=== PATIENT | male | born 1955 | race Caucasian/White ===

== ENCOUNTER 2020-06-06 08:33 | Outpatient (CLI) | payer MEDICARE, SELFPAY ==
--- NOTE | 2020-06-06 08:37 | CT_ITS ---
WS: [id number] CT ABDOMEN PELVIS TECHNIQUE: Contrast-enhanced CT of the abdomen and pelvis with coronal and sagittal reformatted image s. CLINICAL INFORMATION: PANCREATIC HEAD MASS DLP: 403.[address] scans at [facility] use at least one of these dose optimization techniques: automat ed exposure control; mA and/or kV adjustment per patient size (includes targeted exams where dose is matched to clinical indication); or iterative reconstruction. FINDINGS: Comparison ultrasound . No evidence of pancreatic mass. No evidence of pancreatic ductal dilatation. Normal pancreatic enhanc ement. No intrahepatic biliary ductal dilatation. Diffuse fatty infiltration liver. Normal portal vein and splenic vein. Normal gallbladder. Adrenal gl ands are normal. Normal renal parenchymal enhancement. Normal GE junction. Spleen is normal. Lung bas es are well aerated. Normal caliber abdominal aorta. No periaortic lymphadenopathy. Normal sigmoid colon. No evidence of s mall or large bowel obstruction. No pelvic or inguinal lymphadenopathy. Prostate calcification. Disc space narrowing worse at L2-3. CT/CT abdomen pelvis w con* [id number] IMPRESSION: 1. Pancreatic head is normal in appearance today. No evidence of pancreatic he ad mass. 2. Mild diffuse fatty infiltration liver. 3. No periaortic or pelvic lymphadenopathy. No inguinal lymphadenopathy. 4. No other significant findings.
[2020-06-06] MEDS: iohexol 300 mg/mL 50 mL Btl PO (08:40)
[2020-06-06 09:18] LABS: Blood Urea Nitrogen 18 mg/dL (8-23); Glomerular Filtration Rate 112.8 mL/min (90-130)
[2020-06-06] MEDS: iodixanol 320 mg/mL 100mL Btl IV (10:11)
== END 2020-06-06 08:34 | disposition home or self-care (01) ==
LOC: RAD 08:34
PROVIDERS: PCP Family Medicine; Visit Provider Family Medicine
DX: K86.89 Other specified diseases of pancreas (principal); K76.0 Fatty (change of) liver, not elsewhere classified
CPT/HCPCS: 36415; 74177; 82565; 84520

== ENCOUNTER 2022-04-09 16:26 | Emergency (ER) | payer MEDICARE, SELFPAY ==
[2022-04-09 16:31] VITALS: BP 72/46; PULSE 65; RESP 16; TEMP 36.4; O2SAT 97; BMI 22.4
[2022-04-09 17:06] VITALS: BP 74/57; PULSE 65; RESP 18; O2SAT 93
--- NOTE | 2022-04-09 17:16 | W.ED.WEAKNES ---
HPI - Weakness General: Chief complaint: Weakness Stated complaint: Low blood pressure not himself Time Seen by Provider: 04/09/22 17:08 Source: patient and family Mode of arrival: ambulatory Limitations: no limitations History of Present Illness: This patient presents to the emergency department because he not feeling well and feels rather globally weak. He states that he has been having some issues with elevation of blood pressure over the past couple of weeks with some mild headache and other nonspecific symptoms and went to a clinic this morning who noted that he had significantly elevated blood pressure and prescribed lisinopril 10 mg. He promptly got the prescription filled at home and took his first dose at approximately 11 AM today. Later this afternoon and early this evening he began to feel just out of sorts and weak and not very energetic. He had no chest pain or shortness of breath. Patient is never been treated for hypertension in the past. He states his family doctor is occasionally noted his blood pressure is borderline elevated but elected to watch it and not initiate any treatment. He readily admits he does not drink much in the way of fluids and is drank very little water today. He states he is urinated today and has had otherwise normal bodily functions today. MD Complaint: generalized weakness Context: new medication Associated symptoms: Denies chest pain, chills, confusion, dysuria, easy bruising, fever(s), nausea, syncope or vomiting Review of Systems Const: Denies: fever(s) or chills Eyes: Denies: change in vision ENMT: Denies: throat pain, odynophagia, nasal discharge or nasal congestion Card: Reports: lightheadedness; Denies: chest pain, palpitations, edema, swelling of feet/ankles or syncope Resp: Denies: dyspnea, productive cough or non-productive cough GI: Denies: abdominal pain, nausea or vomiting : Denies: flank pain, difficulty urinating or dysuria Musc: Denies: neck pain, back pain, extremity pain or extremity swelling Skin/Breast: Denies: rash Neuro: Denies: numbness in extremities, weakness in extremities, lack of coordination, vertigo, confusion, Slurred speech present or difficulty communicating thoughts Psych: Denies: anxiety or depression Endo: Denies: polyuria, polydipsia or tired all the time Brendon/Lymph: Denies: easy bruising or easy bleeding Physical Exam Narrative: EXAM NARRATIVE: Is alert makes good eye contact. Const: COMMON NORMALS: no acute distress and patient oriented x3 GENERAL APPEARANCE: cooperative and comfortable NUTRITIONAL APPEARANCE: thin HENMT: COMMON NORMALS: normocephalic, atraumatic, Normal nasal mucous membranes and turbinates present and moist oral mucous membranes HEAD & SCALP: normocephalic and atraumatic NOSE: Normal nasal mucous membranes and turbinates present Eye: COMMON NORMALS: Equal, round and reactive pupils present, EOMs intact bilaterally and conjunctivae normal CONJUNCTIVA: Yes conjunctivae normal PUPIL: Yes Equal, round and reactive pupils present Neck/C-Spine: COMMON NORMALS: full ROM, no lymphadenopathy, no JVD and No carotid bruits Chest: COMMONS NORMALS: normal inspection of the chest and normal palpation of entire chest wall Resp: COMMON NORMALS: normal respiratory effort, No retractions, No use of accessory muscles and clear to auscultation bilaterally AUSCULTATION: clear to auscultation bilaterally Cardio: COMMON NORMALS: no JVD, regular rate, regular rhythm and No murmurs present (Cardio) RATE: regular rate RHYTHM: regular rhythm GI: COMMON NORMALS: Normal to inspection, nondistended, normoactive bowel sounds present, Soft to palpation, non-tender, no masses and no bruits PALPATION: Yes Soft to palpation : COMMON NORMALS: Yes no CVA tenderness BLADDER/KIDNEY EXAM: Yes no CVA tenderness Back/Pelvis: COMMON NORMALS: no CVA tenderness, thoracic and lumbar spine normal to inspection and no thoracic nor lumbar tenderness Extremity: COMMON NORMALS: normal to inspection, full ROM, capillary refill normal, no calf tenderness and no pedal edema Neuro: COMMON NORMALS: patient oriented x3, moves all extremities, no focal motor deficits and no sensory deficits noted Psych: COMMON NORMALS: mental status grossly normal Skin: COMMON NORMALS: no rashes or lesions noted and no jaundice GENERAL SKIN EXAM: no rashes or lesions noted Course Reevaluation(s): Reevaluation #1: Patient is improved his blood pressure is improved he remains in a regular sinus rhythm borderline sinus bradycardia. Repeat examination reveals no new or focal findings. Engaged in a little more discussion with his spouse and she relates that over the past couple weeks she has had episodes where he will discount and stare off into space and will talk to her. She states that that is one of the reason she took him to the doctor this morning (this is now just being shared). She denies he suffers from any seizure activity etc. He denies any sensation of palpitations headache etc. His neurologic examination is nonfocal at this time and his mental status is normal however I would like to proceed with a noncontrast CT scan and she and he are agreeable to that. Time: 18:57 Reevaluation #2: His vital signs continue to improve. Now normotensive range with a systolic pressure of 120 diastolic pressure in the 70s. He is alert conversive without any focal findings. His noncontrast CT scan is reassuring. He apparently has a follow-up with his doctor on Tuesday. I think is reasonable to continue with that at that time determine if he needs to continue lisinopril or not. I advised him to hold the lisinopril over the weekend and monitor his blood pressure at home once or twice daily. Certainly it is unclear of what type of events his is describing. Whether there are partial seizures versus 10 transient hypotension or arrhythmia etc. its not clear but additional evaluation is likely indicated and I shared that with both he and his spouse. Currently at this time there is no evidence of an ongoing emergency medical condition require additional treatment or observation. With IV hydration his pressure has normalized. Time: 19:50 Vital Signs: Vital signs: Vital Signs Temperature 97.5 F L 04/09/22 16:31 Pulse Rate 57 L 04/09/22 18:34 Respiratory Rate 16 04/09/22 18:34 Blood Pressure 94/68 04/09/22 18:34 Pulse Oximetry 96 04/09/22 18:34 Oxygen Delivery Me thod 04/09/22 18:34 MDM - Weakness Medical Decision Making Patient brought to the emergency part by his spouse because of low blood pressure. She apparently has been having fluctuating blood pressure over the past several weeks and his took him to the clinic today for evaluation of his noted he was hypertensive and he was prescribed lisinopril. He apparently took his first dose (his central earlier today and subsequently had progressive significant lowering his blood pressure and somewhat generalized fatigue and weakness. Upon arrival he was noted to be significantly hypotensive but did respond to IV hydration and observation in the emergency department. Screening laboratories and clinical examination were reassuring. His later related that he was having some occasional episodes where it sounds almost as if he was in a fugue or absent state. A noncontrast CT was obtained which was reassuring without any evidence of acute changes. Clinical exam did not suggest anything worrisome at this time and they have follow-up arranged. His lisinopril was held until he has follow-up appointment at that time consideration may be given to additional work-up to possibly include carotid studies, echocardiogram, referral to neurology for EEG etc. Both patient and spouse expressed acknowledgment of discussion and recommendations and were appreciative of care. Lab Data I reviewed the patient's lab results. : 04/09/22 17:[address] 04/09/22 18:58 IMPRESSION: No acute intracranial abnormality. Mild left sphenoid sinusitis. Laboratory Results Sodium 143 mmol/L (136-145) 04/09/22 17:20 Potassium 3.7 mmol/L (3.5-5.1) 04/09/22 17:20 Chloride 106 mmol/L (98-107) 04/09/22 17:20 Carbon Dioxide 25 mmol/L (22-29) 04/09/22 17:20 Anion Gap 15.7 (5-19) 04/09/22 17:20 BUN 8 mg/dL (8-23) 04/09/22 17:20 Creatinine 1.1 mg/dL (0.7-1.2) 04/09/22 17:20 GFR Calculation 66.8 mL/min (90-130) L 04/09/22 17:20 Glucose 67 mg/dL (65-115) 04/09/22 17:20 Calculated Osmolality 293 mOsm/kg (285-295) 04/09/22 17:20 Calcium 8.4 mg/dL (8.5-10.5) L 04/09/22 17:20 EKG Data EKG 1: I personally reviewed and interpreted this EKG as follows: Interpretation: Resting EKG reveals sinus bradycardia 54 bpm. Normal intervals, normal axis. No acute ST-T wave changes noted at this time. Discharge Plan Discharge Patient Disposition: Home Clinical Impression: Hypotension, unspecified Condition: Stable Discharge Orders: Discharge ED (Routine); Ordered 04/09/22 Ordered By: Colt Corado Referrals: Clark Reeves MD [Primary Care Provider] - 04/13/22 (Scheduled follow-up. Was seen in the emergency department because of hypotension secondary to lisinopril prescribed earlier this day) Discharge Diet: Usual diet Discharge Activity: Increase activity as tolerated Patient Instructions: Opioid Safety Activity Restrictions/Additional Instructions: Do not take the lisinopril until you see your doctor. Take your blood pressure reading once or twice daily after you have been sitting for 10 to 15 minutes. If you have any recurrent symptoms or concerns prior to your doctor's appointment return to this emergency department for reevaluation. Make sure you are drinking at least 2 quarts of fluid daily. 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
[2022-04-09] MEDS: sodium chloride 0.9% 1,000 ML 999 ML IV (17:31)
[2022-04-09 18:04] LABS: Anion Gap 15.7 (5-19); Blood Urea Nitrogen 8 mg/dL (8-23); Calcium 8.4 mg/dL (8.5-10.5); Carbon Dioxide 25 mmol/L (22-29); Chloride 106 mmol/L (98-107); Glomerular Filtration Rate 66.8 mL/min (90-130); Glucose 67 mg/dL (65-115); Osmolality Calculated 293 mOsm/kg (285-295); Potassium 3.7 mmol/L (3.5-5.1); Sodium 143 mmol/L (136-145)
--- NOTE | 2022-04-09 18:14 | ECG_ITS ---
[facility] Test Date: 2022-04-09 Pat Name: Colt Gong Department: Room: Gender: Male [employer] Executive Producer: : 1955 Requested By: Colt Corado Order Number: [id number] Claudio MD: Rob Cohen M.D. Measurements Intervals [place] Rate: 54 P: 73 NE: 155 QRS: 88 QRSD: 90 T: 89 QT: 461 QTc: 437 Interpretive Statements SINUS BRADYCARDIA No previous ECG available for comparison Electronically Signed On 04-10-2022 9:27:59 CDT by Rob Cohen M.D. [id number]
[2022-04-09 18:34] VITALS: BP 94/68; PULSE 57; RESP 16; O2SAT 96
--- NOTE | 2022-04-09 18:58 | CTR_ITS ---
PROCEDURE INFORMATION: Exam: CT Head Without Contrast Exam date and time: 04/09/2022 7:13 PM Age: 66 years old Clinical indication: Syncope and collapse; Additional info: Episodes of unresponsive TECHNIQUE: Imaging protocol: Computed tomography of the head without contrast. Radiation optimization: All CT scans at this facility use at least one of these dose optimization techniques: automated exposure control; mA and/or kV adjustment per patient size (includes targeted exams where dose is matched to clinical indication); or iterative reconstruction. COMPARISON: No relevant prior studies available. RADIATION DOSE METRICS: Total DLP (mGy-cm): 1101.61 FINDINGS: Brain: Mild atrophy and mild white matter chronic microvascular changes are noted. No hemorrhage or evidence of acute infarction. Cerebral ventricles: No ventriculomegaly. Paranasal sinuses: Mild left sphenoid sinusitis is appreciated. Mastoid air cells: Visualized mastoid air cells are well aerated. Bones/joints: Unremarkable. No acute fracture. Soft tissues: Unremarkable. CT/CT head wo con* [id number] IMPRESSION: No acute intracranial abnormality. Mild left sphenoid sinusitis.
[2022-04-09 20:03] VITALS: BP 120/75; PULSE 58; RESP 18; TEMP 36.7; O2SAT 99
== END 2022-04-09 20:05 | disposition home or self-care (01) ==
PROVIDERS: Emergency Provider Emergency Medicine; PCP Family Medicine
DX: I95.9 Hypotension, unspecified (principal)
CPT/HCPCS: 70450; 80048; 93005; 99285; J7030

== ENCOUNTER 2022-07-30 15:35 | Observation (INO) | payer MEDICARE, SELFPAY ==
[2022-07-30] VITALS (49 sets, daily range): BP systolic 66–153; BP diastolic 45–96; PULSE 55–82; RESP 11–31; TEMP 36.6–36.9; O2SAT 91–98; BMI 21.7
--- NOTE | 2022-07-30 16:30 | ECG_ITS ---
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 Measurements Intervals [place] Rate: 64 P: 73 IA: 145 QRS: 48 QRSD: 90 T: 79 QT: 436 QTc: 450 Interpretive Statements SINUS RHYTHM POSSIBLE RIGHT VENTRICULAR CONDUCTION DELAY [RSR (QR) IN V1/V2] NONSPECIFIC T-WAVE ABNORMALITY Compared to ECG 04/09/2022 18:14:40 T-wave abnormality now present Sinus bradycardia no longer present Electronically Signed On 07-30-2022 23:51:43 TRACK MAN by Brendan Webb M.D. [id number]
--- NOTE | 2022-07-30 16:30 | XRR_ITS ---
PROCEDURE INFORMATION: Exam: XR Chest Exam date and time: 07/30/2022 4:37 PM Age: 67 years old Clinical indication: Angina; Patient HX: High BP; Additional info: Syncope, chest pain TECHNIQUE: Imaging protocol: Radiologic exam of the chest. Views: 1 view. COMPARISON: CT abdomen pelvis w con* [id number] 06/06/2020 10:04 AM FINDINGS: Lungs: The lung bases are suboptimally assessed due to technique however the upper lungs are clear of focal consolidation. Pleural spaces: Unremarkable. No pleural effusion. No pneumothorax. Heart/Mediastinum: Cardiac silhouette appears normal in size. No obvious vascular congestion. Bones/joints: No acute osseous findings. Other findings: Single view was submitted. XR/XR chest 1V portable [id number] IMPRESSION: No obvious acute consolidation. Suboptimal lung base assessment. Followup including lateral view may be obtained if clinically indicated.
--- NOTE | 2022-07-30 16:32 | ED_ITS ---
HPI - General Adult General: Chief complaint: General Medical Stated complaint: high bp, confusion Time Seen by Provider: 07/30/22 16:07 History of Present Illness: 67-year-old male presents the emergency department by private vehicle along with his . Patient woke up with a blood pressure of 167/124 this morning. His doctor had just prescribed him labetalol 100 mg to use as needed up to every 4 hours when blood pressure is over 100 diastolic or with over 170 systolic. He took 100 mg of labetalol. Over the next few hours the blood pressure started to come down. reports the patient was having episodes of altered alertness and mental status. She reports at one point in time he tried to stand up and instead ended up slumping over to the side and dropping his phone. Another time he seemed to be staring but did not have capacity to interact normally. At around noon, gave another dose of 100 mg of labetalol thinking that his blood pressure was still too high. On arrival the patient's blood pressure is quite low. I put him in a semistanding position and his blood pressure was 67 systolic and he was feeling lightheaded. Patient reports at home he has episodes where he gets lightheaded, nauseated, diaphoretic. These episodes happen frequently and are usually related to position. He denies any fever. He does have a history of hypotension in the p ast. On review of systems he has black-colored stools intermittently for 1 month. On review of systems he also admitted to having chest pain around the time of his near syncope at home. He has a approximately [id number] history of tobacco smoking. He also has a history of heavy alcohol drinking for about 10 years. He stopped about 4 years ago. He has not had any hemoptysis, cough, swelling, fever, dysuria, stool changes. Associated symptoms: Reports chest pain and syncope; Deny dyspnea, headache(s), rash, palpitations or vomiting Review of Systems General: Reports: 10 or more systems reviewed and unremarkable except in HPI and below Const: Denies: fever(s), chills or body aches Eyes: Denies: change in vision ENMT: Denies: throat pain Card: Reports: chest pain, lightheadedness, syncope and pre-syncope; Denies: palpitations, edema, swelling of feet/ankles or dyspnea on exertion Resp: Reports: wheezing; Denies: dyspnea, productive cough or pain on inspiration GI: Denies: abdominal pain, vomiting or diarrhea : Denies: flank pain, dysuria or urinary frequency Musc: Denies: neck pain, back pain, extremity pain or extremity swelling Skin/Breast: Denies: rash or erythema Neuro: Reports: dizziness; Denies: headache(s), numbness in extremities, lack of coordination or seizure- like activity Physical Exam Const: COMMON NORMALS: no limitations, alert and well nourished EXAM LIMITATIONS: no altered mental status HENMT: COMMON NORMALS: normocephalic, atraumatic and external ears normal HEAD & SCALP: normocephalic and atraumatic EXTERNAL EAR: Yes external ears normal MOUTH: no muffled voice Eye: COMMON NORMALS: EOMs intact bilaterally, conjunctivae normal and no scleral icterus CONJUNCTIVA: Yes conjunctivae normal Neck/C-Spine: COMMON NORMALS: no JVD GENERAL: Yes normal visual inspection and Yes trachea midline Resp: COMMON NORMALS: normal respiratory effort and No use of accessory muscles AUSCULTATION: rales and rhonchi Cardio: COMMON NORMALS: no JVD, regular rate and regular rhythm RATE: regular rate RHYTHM: regular rhythm PERIPHERAL PULSES: radial pulses present GI: COMMON NORMALS: Soft to palpation and non-tender PALPATION: Yes Soft to palpation, Yes Tenderness to palpation present (GI) (Mild periumbilical) and No Guarding due to palpation present (GI) Extremity: COMMON NORMALS: normal to inspection Neuro: COMMON NORMALS: moves all extremities, no focal motor deficits and no sensory deficits noted SENSORIUM/ORIENTATION: Yes alert SPEECH: speech normal Psych: COMMON NORMALS: mental status grossly normal, Normal thought process present, cooperative, normal affect and speech normal SPEECH: Yes normal speech THOUGHT PROCESS: Normal thought process present Skin: COMMON NORMALS: no rashes or lesions noted, turgor normal and no jaundice GENERAL SKIN EXAM: no rashes or lesions noted and turgor normal Course Vital Signs: Vital signs: Vital Signs Temperature 97.8 F 07/30/22 15:43 Pulse Rate 65 07/30/22 18:05 Respiratory Rate 19 H 07/30/22 18:05 Blood Pressure 118/78 07/30/22 18:05 Pulse Oximetry 95 07/30/22 18:05 Oxygen Delivery Me thod 07/30/22 16:14 [facility] - General Adult Medical Decision Making Patient presents with episodes of near syncope as well as syncope that seem to be related to blood pressure. His blood pressure has been widely variable for several months. He was started on a new as needed labetalol 100 mg tablet today. He took it according to the recommendations and now has hypotension. I performed some orthostatics in the room which were positive. It is unclear why he has such bad autonomic sensitivity. This does not sound like a typical heart attack or stroke. He has not diagnosed with Parkinson's or other disease process commonly associated with autonomic neuropathy. He did endorse having some dark-colored stools for about a month so we need to check for anemia. He also has a long history of smoking so a troponin and EKG need to be obtained. He has some crackles and wheezes in his lungs but does not endorse any acute changes there. Pulmonary embolism is less likely. Patient's lactic elevated c/w hypotension. No signs of sepsis. Discussed with Dr Chacon for observation admission to ICU. Lab Data 07/30/22 16:03 07/30/22 16:03 Radiology Impressions Chest X-Ray 07/30/22 16:30 IMPRESSION: No obvious acute consolidation. Suboptimal lung base assessment. Followup including lateral view may be obtained if clinically indicated. Laboratory Results WBC 8.0 10^3/uL (4.0-10.0) 07/30/22 16:03 RBC 4.62 10^6/uL (4.1-5.3) 07/30/22 16:03 Hgb 16.4 g/dL (11.7-16.6) 07/30/22 16:03 Hct 48.6 % (42.0-52.0) 07/30/22 16:03 MCV 105.2 fl (80-94) H 07/30/22 16:03 MCH 35.5 pg (28.0-34.0) H 07/30/22 16:03 MCHC 33.7 g/dL (30.0-36.0) 07/30/22 16:03 RDW 13.0 % (12.1-15.1) 07/30/22 16:03 Plt Count 227 10^3/cmm (130-400) 07/30/22 16:03 MPV 11.1 fL (7.4-10.4) H 07/30/22 16:03 Neut % (Auto) 45.6 % 07/30/22 16:03 Lymph % (Auto) 39.2 % 07/30/22 16:03 [place] % (Auto) 12.1 % 07/30/22 16:03 Eos % (Auto) 1.5 % 07/30/22 16:03 Baso % (Auto) 0.9 % 07/30/22 16:03 Neut # (Auto) 3.66 10^3/uL (1.8-7.7) 07/30/22 16:03 Lymph # (Auto) 3.1 10^3/uL (0.8-4.8) 07/30/22 16:03 [place] # (Auto) 1.0 10^3/uL (0.2-0.9) H 07/30/22 16:03 Eos # (Auto) 0.1 10^3/uL (0.0-0.8) 07/30/22 16:03 Baso # (Auto) 0.1 10^3/uL (0.0-0.1) 07/30/22 16:03 Nucleated RBC % (auto) 0 % 07/30/22 16:03 Nucleated RBCs # 0.0 /100WBC 07/30/22 16:03 Sodium 137 mmol/L (136-145) 07/30/22 16:03 Potassium 3.6 mmol/L (3.5-5.1) 07/30/22 16:03 Chloride 102 mmol/L (98-107) 07/30/22 16:03 Carbon Dioxide 23 mmol/L (22-29) 07/30/22 16:03 Anion Gap 15.6 (5-19) 07/30/22 16:03 BUN 9 mg/dL (8-23) 07/30/22 16:03 Creatinine 1.0 mg/dL (0.7-1.2) 07/30/22 16:03 GFR Calculation 74.3 mL/min (90-130) L 07/30/22 16:03 Glucose 91 mg/dL (65-115) 07/30/22 16:03 Calculated Osmolality 282 mOsm/kg (285-295) L 07/30/22 16:03 Lactic Acid 4.3 mmol/L (0.5-2.2) H* 12/16/22 16:03 Calcium 9.6 mg/dL (8.5-10.5) 07/30/22 16:03 Total Bilirubin 0.4 mg/dL (0.15-1.2) 07/30/22 16:03 AST 69 U/L (0-40) H 07/30/22 16:03 ALT 62 U/L (0-41) H 07/30/22 16:03 Alkaline Phosphatase 77 U/L (40-130) 07/30/22 16:03 Troponin T Baseline 11 ng/L (0-15) 07/30/22 16:03 NT-Pro-B Natriuret Pep 57 pg/mL (0-125) 07/30/22 16:03 Total Protein 6.1 g/dL (6.6-8.7) L 07/30/22 16:03 Albumin 3.7 g/dL (3.5-5.2) 07/30/22 16:03 Globulin 2.4 g/dL (1.3-4.6) 07/30/22 16:03 Discharge Plan Discharge Patient Disposition: Placed in Observation Clinical Impression: Acute hypotension, Medication side effect Coding 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
[2022-07-30 16:42] LABS: Basophils # 0.1 10^3/uL (0.0-0.1); Basophils % 0.9 %; Eosinophils # 0.1 10^3/uL (0.0-0.8); Eosinophils % 1.5 %; Hematocrit 48.6 % (42.0-52.0); Hemoglobin 16.4 g/dL (11.7-16.6); Lymphocytes # 3.1 10^3/uL (0.8-4.8); Lymphocytes % 39.2 %; Mean Corpuscular HGB Conc 33.7 g/dL (30.0-36.0); Mean Corpuscular Hemoglobin 35.5 pg (28.0-34.0); Mean Corpuscular Volume 105.2 fl (80-94); Mean Platelet Volume 11.1 fL (7.4-10.4); Monocytes % 12.1 %; Neutrophils # 3.66 10^3/uL (1.8-7.7); Neutrophils % 45.6 %; Nucleated Red Blood Cells % 0 %; Platelet Count 227 10^3/cmm (130-400); Red Blood Count 4.62 10^6/uL (4.1-5.3)
[2022-07-30] MEDS: sodium chloride 0.9% 1,000 ML 999 ML IV ×2 (16:50→20:44)
[2022-07-30 17:10] LABS: Lactic Sepsis W/Reflex 4.3 mmol/L (0.5-2.2)
[2022-07-30 17:12] LABS: Alanine Aminotransferase 62 U/L (0-41); Albumin Level 3.7 g/dL (3.5-5.2); Alkaline Phosphatase 77 U/L (40-130); Anion Gap 15.6 (5-19); Aspartate Amino Transferase 69 U/L (0-40); Blood Urea Nitrogen 9 mg/dL (8-23); Calcium 9.6 mg/dL (8.5-10.5); Carbon Dioxide 23 mmol/L (22-29); Chloride 102 mmol/L (98-107); Globulin 2.4 g/dL (1.3-4.6); Glomerular Filtration Rate 74.3 mL/min (90-130); Glucose 91 mg/dL (65-115); NT Pro B Type Natriuretic Pept 57 pg/mL (0-125); Osmolality Calculated 282 mOsm/kg (285-295); Potassium 3.6 mmol/L (3.5-5.1); Sodium 137 mmol/L (136-145); Total Bilirubin 0.4 mg/dL (0.15-1.2); Total Protein 6.1 g/dL (6.6-8.7)
--- NOTE | 2022-07-30 17:13 | PC.NURSE ---
INFORMED DR. MILLER OF LACTIV OF 4.3 VERBALIZED UNDERSTANDING.
[2022-07-30 17:47] LABS: Troponin(5th) Baseline 11 ng/L (0-15)
--- NOTE | 2022-07-30 18:15 | W.ED.GENADLT ---
HPI - General Adult General: Chief complaint: General Medical Stated complaint: high bp, confusion Time Seen by Provider: 07/30/22 16:07 Course Vital Signs: Vital signs: Vital Signs Temperature 97.8 F 07/30/22 15:43 Pulse Rate 65 07/30/22 18:05 Respiratory Rate 19 H 07/30/22 18:05 Blood Pressure 118/78 07/30/22 18:05 Pulse Oximetry 95 07/30/22 18:05 Oxygen Delivery Me thod 07/30/22 16:14 MDM - General Adult Medical Decision Making one month of n/v/d CT abd/pelv w/ contrast today is neg c diff and stool cultures being obtained lytes being corrected IVF UA pending WBC normal Lab Data 07/30/22 16:03 07/30/22 16:03 Radiology Impressions Chest X-Ray 07/30/22 16:30 IMPRESSION: No obvious acute consolidation. Suboptimal lung base assessment. Followup including lateral view may be obtained if clinically indicated. Laboratory Results WBC 8.0 10^3/uL (4.0-10.0) 07/30/22 16:03 RBC 4.62 10^6/uL (4.1-5.3) 07/30/22 16:03 Hgb 16.4 g/dL (11.7-16.6) 07/30/22 16:03 Hct 48.6 % (42.0-52.0) 07/30/22 16:03 MCV 105.2 fl (80-94) H 07/30/22 16:03 MCH 35.5 pg (28.0-34.0) H 07/30/22 16:03 MCHC 33.7 g/dL (30.0-36.0) 07/30/22 16:03 RDW 13.0 % (12.1-15.1) 07/30/22 16:03 Plt Count 227 10^3/cmm (130-400) 07/30/22 16:03 MPV 11.1 fL (7.4-10.4) H 07/30/22 16:03 Neut % (Auto) 45.6 % 07/30/22 16:03 Lymph % (Auto) 39.2 % 07/30/22 16:03 [place] % (Auto) 12.1 % 07/30/22 16:03 Eos % (Auto) 1.5 % 07/30/22 16:03 Baso % (Auto) 0.9 % 07/30/22 16:03 Neut # (Auto) 3.66 10^3/uL (1.8-7.7) 07/30/22 16:03 Lymph # (Auto) 3.1 10^3/uL (0.8-4.8) 07/30/22 16:03 [place] # (Auto) 1.0 10^3/uL (0.2-0.9) H 07/30/22 16:03 Eos # (Auto) 0.1 10^3/uL (0.0-0.8) 07/30/22 16:03 Baso # (Auto) 0.1 10^3/uL (0.0-0.1) 07/30/22 16:03 Nucleated RBC % (auto) 0 % 07/30/22 16:03 Nucleated RBCs # 0.0 /100WBC 07/30/22 16:03 Sodium 137 mmol/L (136-145) 07/30/22 16:03 Potassium 3.6 mmol/L (3.5-5.1) 07/30/22 16:03 Chloride 102 mmol/L (98-107) 07/30/22 16:03 Carbon Dioxide 23 mmol/L (22-29) 07/30/22 16:03 Anion Gap 15.6 (5-19) 07/30/22 16:03 BUN 9 mg/dL (8-23) 07/30/22 16:03 Creatinine 1.0 mg/dL (0.7-1.2) 07/30/22 16:03 GFR Calculation 74.3 mL/min (90-130) L 07/30/22 16:03 Glucose 91 mg/dL (65-115) 07/30/22 16:03 Calculated Osmolality 282 mOsm/kg (285-295) L 07/30/22 16:03 Lactic Acid 4.3 mmol/L (0.5-2.2) H* 07/30/22 16:03 Calcium 9.6 mg/dL (8.5-10.5) 07/30/22 16:03 Total Bilirubin 0.4 mg/dL (0.15-1.2) 07/30/22 16:03 AST 69 U/L (0-40) H 07/30/22 16:03 ALT 62 U/L (0-41) H 07/30/22 16:03 Alkaline Phosphatase 77 U/L (40-130) 07/30/22 16:03 Troponin T Baseline 11 ng/L (0-15) 07/30/22 16:03 NT-Pro-B Natriuret Pep 57 pg/mL (0-125) 07/30/22 16:03 Total Protein 6.1 g/dL (6.6-8.7) L 07/30/22 16:03 Albumin 3.7 g/dL (3.5-5.2) 07/30/22 16:03 Globulin 2.4 g/dL (1.3-4.6) 07/30/22 16:03 Discharge Plan Discharge Patient Disposition: Placed in Observation Clinical Impression: Acute hypotension, Medication side effect Coding Level of Care Code ED Slide Machine Tender for Coral Keenan
--- NOTE | 2022-07-30 18:17 | PM.HP ---
Providers/Chief Complaint Primary Care Provider: Clark Reeves MD Chief Complaint: high bp, confusion History of Present Illness Colt Gong is a 67 year old male with past medical history of hypertension, hypothyroidism, hyperlipidemia not on statins because of transaminitis, past history of alcohol abuse with last alcohol abuse 5 to 6 months ago presented to the ER today because of lightheadedness, presyncope at home. As per patient and his spouse at bedside he has been having difficulty to control blood pressure for few months for which she was prescribed labetalol 100 mg 4 times a day as needed for systolic blood pressure of more than 175. Today in the morning he was found to have elevated blood pressures so he took 100 mg of labetalol at 7 AM and then repeated the same at 1 PM. After that he started having dizziness along with lightheadedness and nausea. Previously patient has also taken the similar medication 1 time couple of weeks ago and at that time as well he had similar symptoms. Earlier this patient has been complaining of headaches for 3 to 4 months. In the ER patient was found to have a systolic blood pressure of 60 for which he received 1 L of IV fluid bolus after which blood pressure improved but on standing up he had similar symptoms again along with dizziness with blood pressure dropping down to 50 systolic 70. Hospitalist at this point was consulted for admission and further management. Patient otherwise does not complain of any nausea vomiting, headache, dizziness, runny nose, constipation. Patient has been having occasional episodes of diarrhea for last few months. On examination patient was lying comfortably in bed with systolic blood pressure of 120/60 mmHg and a heart rate of 50 bpm. He has not having any similar complaints currently. Review of Systems General: Reports: 10 or more systems reviewed and unremarkable except in HPI and below Const: Denies: fever(s), chills, body aches, change in appetite, change in weight, malaise, night sweats, diaphoresis, change in sleep pattern, daytime sleepiness or snoring Eyes: Denies: change in vision, blurry vision, photophobia, eye discomfort or eye discharge ENMT: Denies: throat pain, enlarged tonsils, hoarseness, mouth pain, oral sores, dry mouth, tinnitus, nasal congestion or post nasal drip Card: Denies: chest pain, palpitations, irregular heart rhythm, edema, swelling of feet/ankles, lightheadedness, syncope, pre-syncope, dyspnea on exertion, orthopnea, leg pain with exertion or acrocyanosis Resp: Denies: dyspnea, productive cough, non-productive cough, wheezing, stridor, pain on inspiration, change in phlegm color, hemoptysis or chest congestion GI: Denies: abdominal pain, nausea, vomiting, hematemesis, coffee ground emesis, dysphagia, heartburn, diarrhea, constipation, bloating, GI cramping, change in bowel habits, pain on defecation, hematochezia or melena : Denies: flank pain, difficulty urinating, dysuria, urinary frequency, urinary urgency, urinary hesitancy, urinary dribbling, difficulty starting urination, change in urine stream, nocturia or hematuria Musc: Denies: neck pain, back pain, extremity pain, joint pain, joint swelling, joint redness, joint stiffness or limited range of motion Neuro: Denies: headache(s), numbness in extremities, weakness in extremities, sensory changes, lack of coordination, difficulty walking, frequent falls, dizziness, vertigo, confusion, Slurred speech present, difficulty communicating thoughts or seizure-like activity Psych: Denies: anxiety, depression, mood swings, panic attacks, hopelessness or irritability Endo: Denies: polyuria, polydipsia, tired all the time, cold intolerance, excessive sweating, flushing or heat intolerance [place]/Lymph: Denies: easy bruising or easy bleeding All/Imm: Denies: tongue swelling, facial swelling or acute wheezing Medications/Allergies Home Medications Medication Instructions Recorded Confirmed Last Taken Type aspirin 81 mg tablet,delayed 81 mg PO DAILY 07/30/22 07/30/22 07/30/22 History release escitalopram oxalate 20 mg tablet 20 mg PO DAILY 07/30/22 07/30/22 07/30/22 History esomeprazole magnesium 20 mg 20 mg PO DAILY 07/30/22 07/30/22 07/30/22 History capsule,delayed release (Nexium) labetalol 100 mg tablet 100 mg PO Q4H PRN BLOOD PRESSURE 07/30/22 07/30/22 Unknown History levothyroxine 137 mcg tablet See Rx Instructions .Route .COMPLEX 07/30/22 07/30/22 Unknown History levothyroxine 175 mcg tablet See Rx Instructions .Route .COMPLEX 07/30/22 07/30/22 07/30/22 History wqvndpcf-zqr-dgaua acid 300 1 tab PO DAILY 07/30/22 07/30/22 07/30/22 History mcg-lycopene 600 mcg-lutein 300 mcg tablet (Centrum Silver Men) omega-3 360 fg-xjp-ihw-fish oil 1 cap PO DAILY 07/30/22 07/30/22 07/30/22 History 1,200 mg capsule,delayed release (Fish Oil) Allergies Allergy/AdvReac Type Severity Reaction Status Date / Time codeine Allergy ADR-Nausea Verified 07/30/22 17:02 iodine Allergy ALGY-Anaphy Verified 07/30/22 17:02 laxis PFSH Acute PFSH: Medical History (Updated 07/30/22 @ 22:17 by Huy Nichols MD) Alcohol abuse HTN (hypertension) Hyperlipidemia Hypothyroidism Transaminitis Surgical History (Updated 07/30/22 @ 22:17 by Huy Nichols MD) No pertinent past surgical history Family History (Updated 07/30/22 @ 22:17 by Huy Nichols MD) Other Diabetes Denies family history of CAD (coronary artery disease) Chronic kidney disease (CKD) Social History (Updated 07/30/22 @ 22:18 by Huy Nichols MD) Smoking and tobacco status: current every day smoker cigarettes Packs smoked per day: 1 Alcohol intake: former Substance/Drug Use: never Caregiver/support person: Yes Lives independently: Yes Household members: spouse Housing: House Vitals/I&O/Wt Last Vital Signs Temp 97.8 F 07/30/22 15:43 Pulse 65 07/30/22 18:05 Resp 19 H 07/30/22 18:05 BP 118/78 07/30/22 18:05 Pulse Ox 95 07/30/22 18:05 O2 Del Method 07/30/22 16:14 Weight last 48 hrs Weight 72.575 kg Physical Exam Narrative: General: No acute distress, AO x3 HEENT: PERRLA, pupils bilaterally equal and reactive Chest: Normal vesicular breath sounds, no added sounds, equal good air entry bilaterally CVS: S1-S2 regular, no murmurs, no tachycardia, no gallops, no rubs Abdomen: Soft, nontender, no organomegaly, bowel sounds present Neuro: No focal deficits, no facial deformity, AO x3, power 5/5 in all limbs Data 07/30/22 16:03 07/30/22 16:03 A&P Assessment and plan (1) Shock: Most likely secondary to labetalol use at home which has been prescribed to the patient. Unlikely secondary to infection or sepsis. Patient does not have any active source of infection. Chest x-ray negative for any consolidation. Patient does not give any history. Has no leukocytosis. Check MRSA swab, procalcitonin, urinalysis. For now hold off on IV antibiotics. Goal blood pressure less than 140/90 mmHg with mean over 65. Currently mean is being maintained. Continue with normal saline 100 cc/h. Orthostatic check. If needed can use Levophed. (2) Accidental overdose: (3) HTN (hypertension): Chronic history. Not on any regular medication other than labetalol 100 mg every 4 hour as needed. As per patient he has been having extremely elevated blood pressures at home. Will continue to monitor. Most likely will start patient on amlodipine along with CARIE/ARB or beta-nyasia. (4) Hypothyroidism: Check TSH. Continue home dose of levothyroxine. Plan Full code Cardiac diet Low VT threshold Famotidine for PUD prophylaxis Attestations Medical Necessity Statement*: Admission more than 2 midnights for management of shock which is most likely secondary to overdose of prescribed medication while sepsis is ruled out Critical Care Time: The high probability of a clinically significant, sudden or life threatening deterioration of the patient's [cardiac] system(s) required my full and direct attention, intervention and personal management. The critical care time is as shown. This time is in addition to time spent performing any reported procedures but includes the following: [x] Data and vital sign review and interpretation [x] Patient assessment, examination and intervention [x] Documentation [x] Medication orders and management Critical Care Time (min): 40 Coding Level of Care Code Acute Research Support Specialist for Chg Fwd Diagnoses Shock R57.9 Accidental overdose T50.901A HTN (hypertension) I10 Hypothyroidism E03.9
[2022-07-30 18:22] LABS: Reflex Lactate Order REFLEX LACTIC ORDERD
--- NOTE | 2022-07-30 18:30 | ECG_ITS ---
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 Measurements Intervals [place] Rate: 60 P: 65 HI: 143 QRS: 80 QRSD: 82 T: 80 QT: 457 QTc: 459 Interpretive Statements SINUS RHYTHM Compared to ECG 07/30/2022 16:07:07 T-wave abnormality no longer present Electronically Signed On 07-30-2022 23:52:18 HALL MONITOR by Brendan Webb M.D. [id number]
[2022-07-30 19:20] LABS: Troponin 5 2HR 9.67 ng/L (0-15)
[2022-07-30 19:21] LABS: Amphetamines Screen Urine Negative (Negative); Barbiturates Screen Urine Negative (Negative); Benzodiazepines Screen Urine Negative (Negative); Cocaine Screen Urine Negative (Negative); Opiate Screen Urine Negative (Negative); PCP Screen Urine Negative (Negative); THC Screen Urine Negative (Negative)
[2022-07-30] MEDS: sodium chloride 0.9% 1,000 ML 100 ML IV (19:23)
[2022-07-30 19:27] LABS: Troponin 5 2HR Delta -1.33 ABS# (0-10)
[2022-07-30 20:07] LABS: D Dimer 0.38 ug/mIFEU (0-0.59)
[2022-07-30 20:08] LABS: Lactic Acid level (Lactate) 2.5 mmol/L (0.5-2.2)
[2022-07-30 20:28] LABS: Thyroid Stimulating Hormone 0.68 uIU/mL (0.27-4.20)
[2022-07-30 20:38] LABS: Procalcitonin 0.05 ng/mL (0-0.5); Vitamin B12 1198 pg/mL (232-1245)
[2022-07-30 20:49] LABS: Iron 80 ug/dL (59-158); Percent Saturation 30.5 % (20-50); Total Iron Binding Capacity 262 mcg/dl; Unsaturated Iron Binding 182 ug/dL (112-347)
[2022-07-30 20:53] LABS: Add Urine Microscopic? NO; Charge for UA Resulting for Rev
[2022-07-30 21:04] LABS: Bilirubin Urine Neg (Negative); Blood Urine Neg (Negative); Glucose Urine UA Norm (Normal); Ketones Urine Negative (Negative); Leukocyte Esterase Urine Negative (Negative); Nitrate Urine Negative (Negative); Protein Urine Neg (Negative); Urine Appearance Clear (CLEAR); Urine Color Yellow (Yellow); Urobilinogen Urine Neg (Negative); pH Urine 6 (5-7)
--- NOTE | 2022-07-30 22:30 | ECG_ITS ---
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 Measurements Intervals [place] Rate: 61 P: 57 OK: 137 QRS: 74 QRSD: 90 T: 58 QT: 430 QTc: 437 Interpretive Statements SINUS RHYTHM Compared to ECG 07/30/2022 18:53:42 No significant changes Electronically Signed On 07-30-2022 23:51:55 METAL MODEL MAKER by Brendan Webb M.D. [email or web address]/[id number]
[2022-07-30 23:04] LABS: Troponin 5 6HR 9.13 ng/L (0-15)
[2022-07-30 23:15] LABS: Troponin 5 6HR Delta -1.87 ng/L (0-12)
[2022-07-30 23:25] LABS: Folate Level 14.7 ng/mL (4.5-32.2)
[2022-07-31] VITALS (27 sets, daily range): BP systolic 116–173; BP diastolic 75–114; PULSE 63–84; RESP 12–24; TEMP 36.7–36.9; O2SAT 92–96
[2022-07-31 05:19] LABS: Basophils # 0.1 10^3/uL (0.0-0.1); Basophils % 0.9 %; Eosinophils # 0.1 10^3/uL (0.0-0.8); Eosinophils % 1.8 %; Hemoglobin 15.8 g/dL (11.7-16.6); Lymphocytes % 38.4 %; Mean Corpuscular HGB Conc 33.6 g/dL (30.0-36.0); Mean Corpuscular Hemoglobin 35.5 pg (28.0-34.0); Mean Corpuscular Volume 105.6 fl (80-94); Mean Platelet Volume 11.1 fL (7.4-10.4); Monocytes # 0.9 10^3/uL (0.2-0.9); Monocytes % 12.1 %; Neutrophils # 3.59 10^3/uL (1.8-7.7); Neutrophils % 46.2 %; Nucleated Red Blood Cells % 0 %; Platelet Count 216 10^3/cmm (130-400); Red Blood Count 4.45 10^6/uL (4.1-5.3); Red Cell Distribution Width 13.2 % (12.1-15.1); White Blood Count 7.8 10^3/uL (4.0-10.0)
[2022-07-31 05:50] LABS: Alanine Aminotransferase 57 U/L (0-41); Albumin Level 3.6 g/dL (3.5-5.2); Alkaline Phosphatase 72 U/L (40-130); Blood Urea Nitrogen 7 mg/dL (8-23); Carbon Dioxide 25 mmol/L (22-29); Chloride 107 mmol/L (98-107); Chol HDL Ratio 3.77 mg/dL (1.0-5.00); Cholesterol 234 mg/dL (0-200); Globulin 2.3 g/dL (1.3-4.6); Glucose 92 mg/dL (65-115); HDL Cholesterol 62 mg/dL (60-100); LDL Cholesterol Calculated 153 mg/dL (50-129); Osmolality Calculated 290 mOsm/kg (285-295); Sodium 141 mmol/L (136-145); Total Bilirubin 0.6 mg/dL (0.15-1.2); Total Protein 5.9 g/dL (6.6-8.7); Triglycerides 95 mg/dL (0-150); VLDL Cholestrol Calculation 19 mg/dL (0-30)
[2022-07-31 05:52] LABS: Estmated Average Glucose 97
[2022-07-31 05:53] LABS: Anion Gap 13.1 (5-19); Aspartate Amino Transferase 64 U/L (0-40); Potassium 4.1 mmol/L (3.5-5.1)
--- NOTE | 2022-07-31 06:00 | USCV_ITS ---
Beltran Colt Age: 67 Gender: M : 1955 Exam Date: 07/31/2022 10:07 Ordering Phys: Huy Nichols MD Technologist: FLACO Exam Location: [facility] [place] Indication: shock, htn BP: / HR: 77 Rhythm: Sinus Technical Quality: Adequate MEASUREMENTS (Male / Female) Normal Values 2D ECHO LV Diastolic Diameter PLAX 4.7 cm 4.2 - 5.9 / 3.9 - 5.3 cm LV Systolic Diameter PLAX 3.3 cm IVS Diastolic Thickness 0.9 cm 0.6 - 1.0 / 0.6 - 0.9 cm IVS Systolic Thickness 1.1 cm LVPW Diastolic Thickness 0.7 cm 0.6 - 1.0 / 0.6 - 0.9 cm LVPW Systolic Thickness 1.0 cm LVOT Diameter 1.9 cm LV Ejection Fraction 2D Teich 59.1 % LV Ejection Fraction MOD 2C 57.2 % LV Ejection Fraction 2C AL 56.9 % LA Diameter 3.0 cm IVC Diameter 1.8 cm M-MODE Aortic Annulus Diameter 2.5 cm LA Ao Ratio MM 1.4 MV E Point Septal Separation 0.3 cm DOPPLER AV Peak Velocity 139.0 cm/s LVOT Peak Velocity 89.0 cm/s AV Area Cont Eq vti 1.6 cm squared AV Area Cont Eq pk 1.9 cm squared MV Area PHT 3.3 cm squared Mitral E to A Ratio 1.1 MV E' Velocity 49.0 cm/s Mitral E to MV E' Ratio 9.1 Mitral E to LV E' Lateral Ratio 8.0 Mitral E to LV E' Septal Ratio 10.7 TR Peak Velocity 197.0 cm/s TR Peak Gradient 15.5 mmHg TV Peak E Velocity 58.0 cm/s FINDINGS Left Ventricle Normal left ventricular size, systolic function and wall thickness, with no regional wall motion abnormalities. Normal left ventricular wall thickness. Normal diastolic filling pattern. Right Ventricle The right ventricle is normal in size and function. Right Atrium The right atrium is normal in size. Left Atrium The left atrium is normal in size. Mitral Valve Structurally normal mitral valve without significant stenosis or prolapse. There is no mitral regurgitation. Aortic Valve Structurally normal aortic valve without significant sclerosis or stenosis. There is no aortic regurgitation. Tricuspid Valve Structurally normal tricuspid valve without significant stenosis or regurgitation. Pulmonary artery systolic pressure is normal. Pulmonic Valve Structurally normal pulmonic valve without significant stenosis. There is no pulmonic regurgitation. Pericardium Normal pericardium without effusion. Aorta Normal ascending aorta dimension. IVC Mildly dilated IVC. CONCLUSIONS Normal left ventricular size, systolic function and wall thickness, with no regional wall motion abnormalities. Normal left ventricular wall thickness. Normal diastolic filling pattern. Mildly dilated IVC. Paolo Jacob MD (Electronically Signed) Final Date: 01 August 2022 13:59 S
[2022-07-31] MEDS: levothyroxine 175 mcg Tablet PO (06:22)
[2022-07-31] MEDS: sodium chloride 0.9% 1,000 ML 100 ML IV (06:23)
--- NOTE | 2022-07-31 06:50 | PC.NURSE ---
bedside report received from Janelle Frausto RN
[2022-07-31] MEDS: amlodipine 10 mg Tablet PO (10:02)
[2022-07-31] MEDS: docusate sodium 100 mg Capsule PO (10:03)
[2022-07-31] MEDS: escitalopram 10 mg Tablet 20 MG PO (10:03)
[2022-07-31] MEDS: pantoprazole DR 40 mg Tablet PO (10:03)
[2022-07-31] MEDS: aspirin 81 mg EC Tablet PO (10:03)
[2022-07-31] MEDS: losartan 50 mg Tablet PO (12:42)
--- NOTE | 2022-07-31 13:36 | P.DS_ITS ---
Discharge Providers Date of Admission: 07/30/22 18:12 Date of Discharge: July 31, 2022 Attending Provider at Admission: Huy Nichols MD Attending Provider at Discharge: Huy Nichols MD Primary Care Provider: Clark Reeves MD Diagnoses at Discharge Discharge Diagnosis (1) Shock: Status: Acute (2) Accidental overdose: Status: Acute (3) HTN (hypertension): Status: Acute (4) Hypothyroidism: Status: Acute Reason for Visit Reason for Visit: high bp, confusion Hospital Course Hospital Course Colt Gong is a 67 year old male with past medical history of hypertension, hypothyroidism, hyperlipidemia not on statins because of transaminitis, past history of alcohol abuse with last alcohol abuse 5 to 6 months ago presented to the ER today because of lightheadedness, presyncope at home.? As per patient and his spouse at bedside he has been having difficulty to control blood pressure for few months for which she was prescribed labetalol 100 mg 4 times a day as needed for systolic blood pressure of more than 175.? Today in the morning he was found to have elevated blood pressures so he took 100 mg of labetalol at 7 AM and then repeated the same at 1 PM.? After that he started having dizziness along with lightheadedness and nausea.? Previously patient has also taken the similar medication 1 time couple of weeks ago and at that time as well he had similar symptoms.? Earlier this patient has been complaining of headaches for 3 to 4 months. In the ER patient was found to have a systolic blood pressure of 60 for which he received 1 L of IV fluid bolus after which blood pressure improved but on standing up he had similar symptoms again along with dizziness with blood pressure dropping down to 50 systolic 70.? Hospitalist at this point was consulted for admission and further management.? Patient otherwise does not complain of any nausea vomiting, headache, dizziness, runny nose, constipation.? Patient has been having occasional episodes of diarrhea for last few months.? On examination patient was lying comfortably in bed with systolic blood pressure of 120/60 mmHg and a heart rate of 50 bpm.? He has not having any similar complaints currently. Patient was admitted to ICU for further evaluation and management. He was started with IV hydration. There were no concerns for sepsis on admission because of no fever or leukocytosis along with negative history for any source of infection. He was kept off antibiotics. His blood pressures improved and were elevated by the next day. He was started on antihypertensives and blood pressures were monitored with negative orthostatics for around 7 to 8 hours postmedication. He is been discharged hemodynamically stable condition on amlodipine 10 mg and l osartan 50 mg daily. He is to check his blood pressure daily at home and maintain a blood pressure diary and follow-up with his primary care provider within next 1 week for further adjustment of antihypertensives as needed. He is not to take labetalol anymore. Physical Exam Narrative: General: No acute distress, AO x3 HEENT: PERRLA, pupils bilaterally equal and reactive Chest: Normal vesicular breath sounds, no added sounds, equal good air entry bilaterally CVS: S1-S2 regular, no murmurs, no tachycardia, no gallops, no rubs Abdomen: Soft, nontender, no organomegaly, bowel sounds present Neuro: No focal deficits, no facial deformity, AO x3, power 5/5 in all limbs Discharge Data Studies Completed and Pending Completed Studies During Hospitalization Category Date Time Status XR chest 1V portable [id number] Stat Exams 07/30/22 16:30 Completed Pending at discharge Category Date Time Status Blood Culture Stat Lab 07/30/22 19:27 Results MRSA by PCR Routine Lab 07/30/22 20:40 Received Occult Blood Stool [Immunochemical Fecal OCB] Routine Lab 07/30/22 16:30 Uncollected CV. echo complete* [id number] Routine Ultrasound 07/31/22 06:00 Taken Radiology Impressions Chest X-Ray 07/30/22 16:30 IMPRESSION: No obvious acute consolidation. Suboptimal lung base assessment. Followup including lateral view may be obtained if clinically indicated. Laboratory Results WBC 7.8 10^3/uL (4.0-10.0) 07/31/22 05:02 RBC 4.45 10^6/uL (4.1-5.3) 07/31/22 05:02 Hgb 15.8 g/dL (11.7-16.6) 07/31/22 05:02 Hct 47.0 % (42.0-52.0) 07/31/22 05:02 MCV 105.6 fl (80-94) H 07/31/22 05:02 MCH 35.5 pg (28.0-34.0) H 07/31/22 05:02 MCHC 33.6 g/dL (30.0-36.0) 07/31/22 05:02 RDW 13.2 % (12.1-15.1) 07/31/22 05:02 Plt Count 216 10^3/cmm (130-400) 07/31/22 05:02 MPV 11.1 fL (7.4-10.4) H 07/31/22 05:02 Neut % (Auto) 46.2 % 07/31/22 05:02 Lymph % (Auto) 38.4 % 07/31/22 05:02 [place] % (Auto) 12.1 % 07/31/22 05:02 Eos % (Auto) 1.8 % 07/31/22 05:02 Baso % (Auto) 0.9 % 07/31/22 05:02 Neut # (Auto) 3.59 10^3/uL (1.8-7.7) 07/31/22 05:02 Lymph # (Auto) 3.0 10^3/uL (0.8-4.8) 07/31/22 05:02 [place] # (Auto) 0.9 10^3/uL (0.2-0.9) 07/31/22 05:02 Eos # (Auto) 0.1 10^3/uL (0.0-0.8) 07/31/22 05:02 Baso # (Auto) 0.1 10^3/uL (0.0-0.1) 07/31/22 05:02 Nucleated RBC % (auto) 0 % 07/31/22 05:02 Nucleated RBCs # 0.0 /100WBC 07/31/22 05:02 D-Dimer 0.38 ug/mIFEU (0-0.59) 07/30/22 19:22 Sodium 141 mmol/L (136-145) 07/31/22 05:02 Potassium 4.1 mmol/L (3.5-5.1) 07/31/22 05:02 Chloride 107 mmol/L (98-107) 07/31/22 05:02 Carbon Dioxide 25 mmol/L (22-29) 07/31/22 05:02 Anion Gap 13.1 (5-19) 07/31/22 05:02 BUN 7 mg/dL (8-23) L 07/31/22 05:02 Creatinine 0.6 mg/dL (0.7-1.2) L 07/31/22 05:02 GFR Calculation 134.0 mL/min (90-130) H 07/31/22 05:02 Glucose 92 mg/dL (65-115) 07/31/22 05:02 Estimat Average Glucose 97 07/31/22 05:02 Hemoglobin A1c 5.0 % (4.0-6.0) 07/31/22 05:02 Calculated Osmolality 290 mOsm/kg (285-295) 07/31/22 05:02 Lactic Acid 4.3 mmol/L (0.5-2.2) H* 07/30/22 16:03 Lactic Acid (Sepsis) 2.5 mmol/L (0.5-2.2) H 07/30/22 19:22 Calcium 9.0 mg/dL (8.5-10.5) 07/31/22 05:02 Iron 80 ug/dL (59-158) 07/30/22 19:22 TIBC 262 mcg/dl 07/30/22 19:22 % Saturation 30.5 % (20-50) 07/30/22 19:22 Unsat Iron Binding 182 ug/dL (112-347) 07/30/22 19:22 Total Bilirubin 0.6 mg/dL (0.15-1.2) 07/31/22 05:02 AST 64 U/L (0-40) H 07/31/22 05:02 ALT 57 U/L (0-41) H 07/31/22 05:02 Alkaline Phosphatase 72 U/L (40-130) 07/31/22 05:02 Troponin T Baseline 11 ng/L (0-15) 07/30/22 16:03 Troponin T 120 Minute 9.67 ng/L (0-15) 07/30/22 17:46 Delta Troponin T -1.33 ABS# (0-10) L 07/30/22 17:46 Troponin T Hi Sens 6Hr 9.13 ng/L (0-15) 07/30/22 22:30 Troponin T Hi Sens 6Hr Delta -1.87 ng/L (0-12) L 07/30/22 22:30 NT-Pro-B Natriuret Pep 57 pg/mL (0-125) 07/30/22 16:03 Total Protein 5.9 g/dL (6.6-8.7) L 07/31/22 05:02 Albumin 3.6 g/dL (3.5-5.2) 07/31/22 05:02 Globulin 2.3 g/dL (1.3-4.6) 07/31/22 05:02 Triglycerides 95 mg/dL (0-150) 07/31/22 05:02 Cholesterol 234 mg/dL (0-200) H 07/31/22 05:02 LDL Cholesterol, Calc 153 mg/dL (50-129) H 07/31/22 05:02 Total VLDL Cholesterol 19 mg/dL (0-30) 07/31/22 05:02 HDL Cholesterol 62 mg/dL (60-100) 07/31/22 05:02 Cholesterol/HDL Ratio 3.77 mg/dL (1.0-5.00) 07/31/22 05:02 Vitamin B12 1198 pg/mL (232-1245) 07/30/22 19:22 Folate 14.7 ng/mL (4.5-32.2) 07/30/22 22:30 Procalcitonin 0.05 ng/mL (0-0.5) 07/30/22 19:22 TSH 0.68 uIU/mL (0.27-4.20) 07/30/22 19:22 Urine Color Yellow (Yellow) 07/30/22 20:40 Urine Appearance Clear (CLEAR) 07/30/22 20:40 Urine pH 6 (5-7) 07/30/22 20:40 Ur Specific [place] 1.010 (1.005-1.030) 07/30/22 20:40 Urine Protein Neg (Negative) 07/30/22 20:40 Urine Glucose (UA) Norm (Normal) 07/30/22 20:40 Urine Ketones Negative (Negative) 07/30/22 20:40 Urine Blood Neg (Negative) 07/30/22 20:40 Urine Nitrate Negative (Negative) 07/30/22 20:40 Urine Bilirubin Neg (Negative) 07/30/22 20:40 Urine Urobilinogen Neg mg/dL (Negative) 07/30/22 20:40 Ur Leukocyte Esterase Negative (Negative) 07/30/22 20:40 Urine Opiates Screen Negative ng/mL (Negative) 07/30/22 18:43 Ur Barbiturates Screen Negative ng/mL (Negative) 07/30/22 18:43 Ur Phencyclidine Scrn Negative ng/mL (Negative) 07/30/22 18:43 Ur Amphetamines Screen Negative ng/mL (Negative) 07/30/22 18:43 U Benzodiazepines Scrn Negative ng/mL (Negative) 07/30/22 18:43 Urine Cocaine Screen Negative ng/mL (Negative) 07/30/22 18:43 U Marijuana (THC) Screen Negative ng/mL (Negative) 07/30/22 18:43 Vitals Last Vital Signs Temp 98.0 F 07/31/22 10:30 Pulse 82 07/31/22 12:00 Resp 14 07/31/22 12:00 BP 159/104 07/31/22 12:42 Pulse Ox 93 07/31/22 12:00 O2 Del Method 07/31/22 12:00 Discharge Plan Discharge Patient Disposition: Home Condition: Stable Prescriptions: New amlodipine 10 mg Tablet 10 mg PO DAILY 30 Days Qty: 30 0RF losartan 50 mg Tablet 50 mg PO DAILY Qty: 30 0RF Continued levothyroxine 175 mcg tablet See Rx Instructions .ROUTE .COMPLEX Rx Instructions: 175 mcg orally SIX DAYS A WEEK levothyroxine 137 mcg tablet See Rx Instructions .ROUTE .COMPLEX Rx Instructions: 137 mcg orally ONE DAY A WEEK Aspir-81 81 mg Tablet,Delayed Release (Dr/Ec) 81 mg PO DAILY Nexium 20 mg Capsule,Delayed Release(Dr/Ec) 20 mg PO DAILY escitalopram oxalate 20 mg tablet 20 mg PO DAILY Centrum Silver Men 300-600-300 mcg Tablet 1 tab PO DAILY Fish Oil 360-1,200 mg Capsule,Delayed Release(Dr/Ec) 1 cap PO DAILY Discontinued labetalol 100 mg tablet 100 mg PO Q4H PRN (Reason: BLOOD PRESSURE) Discharge Orders: Discharge Order (Routine); Ordered 07/31/22 Ordered By: Huy Nichols Referrals: Clark Reeves MD [Primary Care Provider] - 2 weeks Discharge Diet: Cardiac Discharge Activity: Resume usual activity and Increase activity as tolerated Patient Instructions: Opioid Safety Activity Restrictions/Additional Instructions: Do not take labetalol anymore. Amlodipine 10 mg daily and losartan 50 mg daily has been added to medication list. Check your blood pressure daily at home and maintain a blood pressure diary and follow-up with a primary care provider within next 2 weeks for further adjustment of antihypertensives as needed. Discharge Attestations Time Spent in Discharge Care*: greater than 30 min Specific Discharge Activities: educating patient, educating and/or supporting family/caregiver, discussing with family preservation caseworker/social workers/dc planners, documenting/other paperwork and evaluating patient/reviewing data Time Spent in Smoking Cessation: more than 10 minutes Status at Discharge: Cognitive status at discharge: cognitively intact , Behavioral status at discharge: cooperative , Functional status at discharge: independent ambulation , Overall status at discharge: patient is back to baseline Quality Metrics Clinical Quality Measures [ No reported AMI, CVA or VTE this stay] Coding Level of Care Code Acute Chg FW DC note Diagnoses Shock R57.9 Accidental overdose T50.901A HTN (hypertension) I10 Hypothyroidism E03.9
[2022-07-31 14:35] LABS: Hepatitis A Antibody IgM Non-Reactive (Nonreactive); Hepatitis B Core AB, Total Non-Reactive (Nonreactive); Hepatitis B Surface Antigen Non-Reactive (Nonreactive); Hepatitis C Virus Antibody Non-Reactive (Nonreactive)
[2022-07-31 14:36] LABS: Hepatitis B Surface AB < 3.5 (11.5-1000)
--- NOTE | 2022-07-31 15:00 | PC.NURSE ---
Discharge Discharge instructions given to patient and spouse, including to take blood pressure at home and log the results for out patient providers. Education provided regarding amlodipine, losartan, and hypertension. IV removed from the left forearm. Cath tip intact. Pt escorted out to personal vehicle with . Prescriptions verified to be at [facility] in [place] Instructed to contact the unit with any questions or concerns.
== END 2022-07-31 15:10 | disposition home or self-care (01) ==
LOC: ER 18:50 → ICU 19:41
PROVIDERS: Admitting Provider Student in an Organized Health Care Education/Training Program; Emergency Provider Emergency Medicine; PCP Family Medicine; Visit Provider Student in an Organized Health Care Education/Training Program
DX: R57.9 Shock, unspecified (principal); T50.901A Poisoning by unspecified drugs, medicaments and biological substances, accidental (unintentional), initial encounter; I10 Essential (primary) hypertension; E03.9 Hypothyroidism, unspecified; E78.5 Hyperlipidemia, unspecified; Z79.82 Long term (current) use of aspirin; F17.210 Nicotine dependence, cigarettes, uncomplicated
CPT/HCPCS: 36415; 71045; 80053; 80061; 80306; 81003; 82607; 82746; 83036; 83540; 83550; 83605; 83880; 84145; 84443; 84484; 85025; 85378; 86403; 86705; 86706; 86709; 86803; 87040; 87340; 87449; 87641; 93005; 93306; 94664; 96360; 96361; 99285; G0378; J7030

== ENCOUNTER → 2022-08-02 09:44 | Outpatient (BNVA) | payer MEDICARE, SELFPAY | PROVIDERS: PCP Family Medicine; Visit Provider Internal Medicine Cardiovascular Disease | DX: R06.02 Shortness of breath (principal); I10 Essential (primary) hypertension; F17.210 Nicotine dependence, cigarettes, uncomplicated; E03.9 Hypothyroidism, unspecified; E78.5 Hyperlipidemia, unspecified; R74.01 Elevation of levels of liver transaminase levels | CPT/HCPCS: 99204 ==

== ENCOUNTER → 2022-08-19 12:37 | Outpatient (BNVA) | payer MEDICARE, SELFPAY | PROVIDERS: PCP Family Medicine; Visit Provider Internal Medicine | DX: R06.02 Shortness of breath (principal); R00.0 Tachycardia, unspecified | CPT/HCPCS: 93270 ==

== ENCOUNTER 2022-08-23 07:44 | Outpatient (CLI) | payer MEDICARE, SELFPAY ==
--- NOTE | 2022-08-23 07:55 | CT_ITS ---
WS: [id number] LDCT LUNG CANCER SCREENING TECHNIQUE: Noncontrast CT of the chest with coronal and sagittal reformatted images. CLINICAL INFORMATION: NICOTINE DEPENDENCE, CIGARETTES COMPARISON: None. DLP: 86.78 mGy.cm DIvol: Mean CTDIvol: 1.60 (mGy) All CT scans at [facility] use at least one of these dose optimization techniques: automat ed exposure control; mA and/or kV adjustment per patient size (includes targeted exams where dose is matched to clinical indication); or iterative reconstruction. FINDINGS: Lungs are well aerated. Subpleural opacity RIGHT lower lobe laterally measuring 8 mm. A few subpleural tiny nodules in both upper lobes.. Pleural thickening along the RIGHT fissure. Additional 4 mm nodule along the super segment RIGHT lower lobe along the major fissure. A few calcified granul omas. Aortic calcification. Normal caliber thoracic aorta. No mediastinal or hilar lymphadenopathy. No axil nasim lymphadenopathy. Normal GE junction. Mild thoracic curve. Mild thoracic kyphosis. Hypertrophic changes thoracic spine. Adrenal glands are normal. CT/CT lung screening [id number] IMPRESSION: Recommend 6 month follow-up with attention to the 8 mm subpleural o pacity RIGHT lower lobe. LUNG-RADS: 3-Probably Benign FOLLOW UP: 6 Month LDCT
== END 2022-08-23 07:45 | disposition home or self-care (01) ==
LOC: RAD 07:47
PROVIDERS: PCP Family Medicine; Visit Provider Family Medicine
DX: Z12.2 Encounter for screening for malignant neoplasm of respiratory organs (principal); Z87.891 Personal history of nicotine dependence
CPT/HCPCS: 71271

== ENCOUNTER 2022-09-27 09:29 | Outpatient (CLI) | payer MEDICARE, SELFPAY ==
[2022-09-27 10:23] VITALS: BMI 22.8
--- NOTE | 2022-09-27 10:26 | ECG_ITS ---
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 Interpretive Statements NAME OF STUDY: EXERCISE SESTAMIBI STRESS TEST INDICATION: Chest Pain At Rest Baseline blood pressure of 129/86 mm Hg, heart rate of 62 beats per minute and oxygen saturation of 96%. EKG showed sinus rhythm, possible old septal infarct with normal ST-Ts. ??? The patient exercised for 9 minutes and 43 seconds on a [standard Joe protocol]. Patient attained a maximum heart rate of 141 beats per minute( 92 % of the maximum predicted heart rate) with a blood pressure at the peak exercise of 169/82 mm Hg and oxygen saturation of 96%. The EKG at the peak exercise revealed sinus tachycardia with no significant ST-T wave changes. Patient did [not have any chest pain or any significant arrhythmis with the exercise]. The study was terminated due to maximal effort.??? During the recovery phase, there were no new changes. ??? Blood pressure at the end of the recovery phase was 129/80 mm Hg with a heart rate of 82 beats per minute and oxygen saturation of 96%. ??? CONCLUSION: 1. Normal EKG response to treadmill exercise. 2. No exercise-induced chest pain or cardiac arrhythmia. 3. Excellent exercise tolerance, attained a maximum of 13.5 METs. 4. Baseline normal blood pressure with normal response to exercise. 5. Perfusion scan will be documented separately. Electronically Signed On 10-02-2022 10:28:13 MARKER MACHINE by Venice White M.D. [id number]
--- NOTE | 2022-09-27 10:26 | NMCV_ITS ---
NM renae perf SPECT r/s* [id number] Colt Gong Age: 67 Gender: M : 1955 Exam Date: 09/27/2022 10:26 Ordering Phys: Clark Reeves MD Technologist: CALLI Littlejohn Exam Location: [facility] Indications: CHEST PAIN STRESS TEST [facility] IMAGE PROTOCOL Rest/Stress 1 Exercise Day Radiopharmaceutical Dose (mCi) Administration Site Administered by Rest: Tc-99m 10.4 IV CALLI Hernandez Sestamibi Stress:Tc-99m 32.6 IV CALLI Hernandez Sestamibi Rest: 27-Sep-2022 60 Discovery 630 Stress: 27-Sep-2022 15 Discovery 630 Radiopharmaceutical was injected at 86 % maximum heart rate. Supine position only as patient was unable to lay prone. SPECT RESULTS Technical Quality: Excellent Raw Data Analysis: Normal Image Corrections: No attenuation or motion correction applied Summed Stress Score: 3 Summed Rest Score: 3 Summed Difference Score: 3 PERFUSION FINDINGS Small sized perfusion abnormality of mid inferior and apical septal arredondo with improved tracer uptake in stress images. FUNCTIONAL RESULTS (calculated via Gated SPECT) Stress Image LV EF (%): 86 Stress EDV (mL):71 TID: 0.78 Stress ESV (mL):10 FUNCTIONAL FINDINGS: The left ventricle is normal in size. Transient Ischemia Dilatation of 0.78. The left ventricular ejection fraction is normal with a value of 86%. There is hyperdynamic left ventricular wall thickening. IMPRESSIONS 1. Small sized perfusion abnormality of mid inferior and apical septal arredondo. This likely represents attenuation artifact. 2. Overall left ventricular systolic function is normal without regional wall motion abnormalities, LVEF=86%. 3. EKG portion of the study will be reported separately. 4. No coronary ischemia based on this study. Venice White MD (Electronically Signed) Final Date: 27 September 2022 20:14 S
[2022-09-27 12:17] VITALS: BP 126/84; PULSE 86
== END 2022-09-27 09:30 | disposition home or self-care (01) ==
PROVIDERS: PCP Family Medicine; Visit Provider Family Medicine
DX: R07.9 Chest pain, unspecified (principal)
CPT/HCPCS: 36415; 78452; A9500

== ENCOUNTER 2022-09-29 06:36 | Outpatient (CLI) | payer MEDICARE, SELFPAY ==
--- NOTE | 2022-09-29 | US_ITS ---
WS: [id number] RIGHT UPPER QUADRANT ULTRASOUND HISTORY: HEPATIC ENCEPHALOPATHY COMPARISON: 07/03/2019 Liver: 15.6 cm in length. Normal size liver. No bile duct dilatation or mass. Portal Vein: Normal hepatopetal flow with monophasic waveform. Gallbladder: Normally distended gallbladder with no stones or wall thickening. CBD: 0.3 cm Pancreas: Normal size and echogenicity. Right kidney: 12.5 cm in length. Normal size and echogenicity. No hydronephrosis or mass. Aorta and IVC: Unremarkable abdominal aorta and IVC. No ascites. US/US liver [id number] IMPRESSION: Normal RIGHT upper quadrant ultrasound.
== END 2022-09-29 06:37 | disposition home or self-care (01) ==
LOC: RAD 06:37
PROVIDERS: PCP Family Medicine; Visit Provider Family Medicine
DX: K76.82 Hepatic encephalopathy (principal)
CPT/HCPCS: 76705

== ENCOUNTER → 2022-11-01 09:50 | Outpatient (BNVA) | payer MEDICARE, SELFPAY | PROVIDERS: PCP Family Medicine; Visit Provider Nurse Practitioner Family | DX: I10 Essential (primary) hypertension (principal); Z79.82 Long term (current) use of aspirin; F17.210 Nicotine dependence, cigarettes, uncomplicated | CPT/HCPCS: 99213 ==

== ENCOUNTER → 2023-03-16 14:02 | Outpatient (BNVA) | payer MEDICARE, SELFPAY | PROVIDERS: PCP Family Medicine; Visit Provider Internal Medicine Cardiovascular Disease | DX: R06.02 Shortness of breath (principal); I10 Essential (primary) hypertension; E78.5 Hyperlipidemia, unspecified; E03.9 Hypothyroidism, unspecified; R74.01 Elevation of levels of liver transaminase levels; F10.21 Alcohol dependence, in remission; F17.210 Nicotine dependence, cigarettes, uncomplicated | CPT/HCPCS: 99214 ==

== ENCOUNTER 2023-07-19 11:28 | Outpatient (CLI) | payer MEDICARE, SELFPAY ==
--- NOTE | 2023-07-19 11:37 | CT_ITS ---
WS: [id number] CT chest wo con [id number] HISTORY: LUNG NODULE TECHNIQUE: Axial imaging performed through the thorax. Coronal and sagittal reformats are submitted. All CT scans at [facility] use at least one of these dose optimization techniques: automated exposure control; mA and/or kV adjustment per patient size (includes targeted exams where dose is mat ched to clinical indication); or iterative reconstruction. CONTRAST: None DLP: 334.48 mGy.cm COMPARISON: 08/23/2022 Lungs and central airway: Mild pulmonary hyperinflation. Previously described subpleural nodule in th e RIGHT lower lobe is decreased in overall density and consolidation but still measures 8 mm. There a re additional very small scattered nodules which are less than 3 mm. There is a nodule measuring 5 mm along the RIGHT fissure. Pleural linear scarring in the anterior short fissure. Pleura: No effusions Heart and pericardium: Normal size heart with no pericardial effusion. Mediastinum and leonardo: No mediastinum or hilar adenopathy. Vessels: Mild atherosclerosis aorta. No aneurysm. Normal sized pulmonary artery. Chest wall and lower neck: No soft tissue masses. Upper abdomen: Normal adrenal glands. Visualized liver is negative. Very mild perinephric stranding a round the upper pole of each kidney. Osseous structures: No destructive bone disease. IMPRESSION: 1. Previously described 8 mm subpleural nodule in the RIGHT lower lobe has decreased in overall conso lidation although the size is similar. There are additional very small, less than 3 mm scattered eddie pheral nodules. No interval change. Recommend return to lung screening CT evaluation. 2. No pulmonary mass.
== END 2023-07-19 11:29 | disposition home or self-care (01) ==
LOC: RAD 11:30
PROVIDERS: PCP Family Medicine; Visit Provider Family Medicine
DX: I70.0 Atherosclerosis of aorta (principal); R91.1 Solitary pulmonary nodule
CPT/HCPCS: 71250

== ENCOUNTER → 2024-01-17 14:43 | Outpatient (BNVA) | payer MEDICARE, SELFPAY | PROVIDERS: PCP Family Medicine; Visit Provider Internal Medicine | DX: R06.02 Shortness of breath (principal); I10 Essential (primary) hypertension; E78.5 Hyperlipidemia, unspecified; E03.9 Hypothyroidism, unspecified; R74.01 Elevation of levels of liver transaminase levels; F17.210 Nicotine dependence, cigarettes, uncomplicated | CPT/HCPCS: 99214 ==

== ENCOUNTER → 2025-01-15 13:19 | Outpatient (BNVA) | payer MEDICARE, SELFPAY | PROVIDERS: PCP Family Medicine; Visit Provider Internal Medicine | DX: I10 Essential (primary) hypertension (principal); E78.5 Hyperlipidemia, unspecified; E03.9 Hypothyroidism, unspecified; Z79.82 Long term (current) use of aspirin; F17.210 Nicotine dependence, cigarettes, uncomplicated | CPT/HCPCS: 99214 ==

== ENCOUNTER → 2025-05-17 09:39 | Outpatient (BNVA) | payer MEDICARE, SELFPAY | PROVIDERS: PCP Family Medicine; Visit Provider Dermatology | DX: B07.8 Other viral warts (principal); Q82.5 Congenital non-neoplastic nevus; L57.8 Other skin changes due to chronic exposure to nonionizing radiation; L73.8 Other specified follicular disorders; D22.5 Melanocytic nevi of trunk; L91.8 Other hypertrophic disorders of the skin | CPT/HCPCS: 11102; 99203 ==